=== PATIENT | female | born 1970 | race Caucasian/White ===

== ENCOUNTER 2016-12-01 13:05 | Inpatient (IN) | payer OTHER ==
[~2016-12-01] VITALS: Ht 167.6 cm; Wt 108.6 kg
[2016-12-01 13:27] LABS: BASOPHILS % (AUTO) 0.3 % (0.0-2.0); EOSINOPHILS % (AUTO) 2.5 % (1.0-6.0); HEMATOCRIT 36.3 % (36-46); HEMOGLOBIN 11.8 g/dL (12.0-16.0); LYMPHOCYTES # (AUTO) 1.9 K/uL (1.0-4.8); LYMPHOCYTES % (AUTO) 16.9 % (22.0-44.0); MEAN CORPUSCULAR HEMOGLOBIN 26.7 pg (26.0-34.0); MEAN CORPUSCULAR HGB CONC 32.4 G/dL (31.0-37.0); MEAN CORPUSCULAR VOLUME 82 fL (80-100); MONOCYTES # (AUTO) 0.6 K/uL (0.1-1.0); MONOCYTES % (AUTO) 5.4 % (2.0-9.0); NEUTROPHILS # (AUTO) 8.5 K/uL (1.8-7.7); NEUTROPHILS % (AUTO) 74.9 % (40.0-70.0); PLATELET COUNT (AUTO) 267 K/uL (150-450); RED BLOOD CELL COUNT(AUTO) 4.42 MIL/uL (4.00-5.20); RED CELL DISTRIBUTION WIDTH 17.9 % (11.5-14.5); WHITE BLOOD COUNT (AUTO) 11.4 K/uL (4.5-11.0)
[2016-12-01] MEDS ORDERED: OXYC10 PO (13:27)
[2016-12-01] MEDS ORDERED: SODIUM CHLORIDE 0.9% 1,000 ML IV ONE ×3 (13:30→19:00)
[2016-12-01 13:35] LABS: ANION GAP 7 mmol/L (8-16); CALCIUM, TOTAL 8.6 mg/dL (8.8-10.5); CARBON DIOXIDE 27 mmol/L (22-29); CHLORIDE 105 mmol/L (98-107); GLOMERULAR FILTR. RATE CALC 54 mL/min (>60); POTASSIUM 3.5 mmol/L (3.5-5.1); SODIUM SERUM 139 mmol/L (136-145); UREA NITROGEN, BLOOD 9 mg/dL (7-18)
[2016-12-01 13:49] LABS: SALICYLATE < 2.8 mg/dL (2.8-20.0)
[2016-12-01 13:54] LABS: APPEARANCE,URINE CLEAR (CLEAR); GLUCOSE, URINE (UA) NEGATIVE (NEGATIVE); KETONES,URINE NEGATIVE (NEGATIVE); LEUKOCYTE ESTERASE ,URINE NEGATIVE (NEGATIVE); OCCULT BLOOD,URINE NEGATIVE (NEGATIVE); PH,URINE 5.5 (5.0-8.0); PROTEIN,URINE NEGATIVE (NEGATIVE)
[2016-12-01 13:55] LABS: ADD UA MICROSCOPIC NO
[2016-12-01 13:57] LABS: RBC MORPHOLOGY COMMENT ABNORMAL RBC MORPH
[2016-12-01 14:08] LABS: ALANINE AMINOTRANSFERASE 38 U/L (12-78); ALBUMIN 3.2 g/dL (3.4-5.0); ASPARTATE AMINOTRANSFERASE 61 U/L (15-37); BILIRUBIN,TOTAL 0.4 mg/dL (0.1-1.0); CREATINE KINASE MB 13.6 ng/mL (0-5); TOTAL PROTEIN, SERUM 7.3 g/dL (6.4-8.2)
[2016-12-01 14:09] LABS: CREATINE KINASE, TOTAL 2806 U/L (26-192)
[2016-12-01 14:12] LABS: ACETAMINOPHEN < 2 mcg/mL (10-30)
[2016-12-01 17:35] LABS: ANION GAP 6 mmol/L (8-16); CALCIUM, TOTAL 7.8 mg/dL (8.8-10.5); CARBON DIOXIDE 27 mmol/L (22-29); CHLORIDE 107 mmol/L (98-107); CREATININE 0.88 mg/dL (0.60-1.30); GLOMERULAR FILTR. RATE CALC > 60 mL/min (>60); SODIUM SERUM 140 mmol/L (136-145); UREA NITROGEN, BLOOD 8 mg/dL (7-18)
[2016-12-01] MEDS ORDERED: LEVOFLOXACIN 750 MG/D5% WATER 150 ML IV ONE (17:45)
[2016-12-01 18:09] LABS: ALANINE AMINOTRANSFERASE 35 U/L (12-78); ALBUMIN 2.9 g/dL (3.4-5.0); ASPARTATE AMINOTRANSFERASE 75 U/L (15-37); BILIRUBIN,TOTAL 0.3 mg/dL (0.1-1.0); TOTAL PROTEIN, SERUM 6.3 g/dL (6.4-8.2)
[2016-12-01 18:10] LABS: CREATINE KINASE, TOTAL 3756 U/L (26-192)
[2016-12-01] MEDS ORDERED: 0.9% SODIUM CHLORIDE 10 ML SYRINGE IVP PRN (18:45)
[2016-12-01] MEDS ORDERED: ACETAMINOPHEN 325 MG TABLET PO PRN (18:45)
[2016-12-01 19:01] LABS: SALICYLATE < 2.8 mg/dL (2.8-20.0)
[2016-12-01 19:31] LABS: ACETAMINOPHEN < 2 mcg/mL (10-30)
[2016-12-01 22:35] VITALS: BP 120/70
[2016-12-01 23:35] VITALS: BP 117/61
[2016-12-02] MEDS ORDERED: ONDANSETRON HCL 4 MG/2 ML VIAL IVP PRN (01:15)
[2016-12-02] MEDS ORDERED: ACETAMINOPHEN 325 MG TABLET PO PRN (01:15)
[2016-12-02] MEDS ORDERED: 0.9% SODIUM CHLORIDE 10 ML SYRINGE IVP PRN (01:15)
[2016-12-02] MEDS: DOCUSATE SODIUM 100 MG CAPSULE PO SCH ×3 (01:15→20:31)
[2016-12-02] MEDS ORDERED: MAGNESIUM HYDROXIDE SUSPENSION 30 ML UDCUP PO PRN (01:15)
[2016-12-02 05:03] VITALS: BP 107/64
[2016-12-02] MEDS: SODIUM CHLORIDE 0.9% 1,000 ML IV SCH ×3 (05:12→21:15)
[2016-12-02 07:27] VITALS: BP 114/69
[2016-12-02] MEDS: PANTOPRAZOLE SODIUM 40 MG/VIAL IVP SCH (07:41)
[2016-12-02 10:59] VITALS: BP 110/62
[2016-12-02] MEDS ORDERED: INFLUENZA VIRUS VACCINE QVS 2016-17 (3YR+)/PF 60 MCG/0.5 ML SYRINGE IM ONE (13:45)
[2016-12-02 14:49] VITALS: BP 123/78
[2016-12-02 19:49] VITALS: BP 124/75
[2016-12-02] MEDS ORDERED: CefTRIAXone 1 GM/DEXTROSE 50 ML IV SCH (21:00)
[2016-12-02] MEDS ORDERED: LIDOCAINE HCL/PF 1% 2 ML VIAL IM SCH (22:00)
[2016-12-02] MEDS ORDERED: CefTRIAXone SODIUM 1 GM/VIAL IM SCH (22:00)
[2016-12-02 23:58] VITALS: BP 119/72
[2016-12-03 04:30] VITALS: BP 119/77
[2016-12-03] MEDS: SODIUM CHLORIDE 0.9% 1,000 ML IV SCH (06:39)
[2016-12-03 07:15] VITALS: BP 120/63
[2016-12-03] MEDS: DOCUSATE SODIUM 100 MG CAPSULE PO SCH (07:50)
[2016-12-03] MEDS: PANTOPRAZOLE SODIUM 40 MG/VIAL IVP SCH (07:50)
== END 2016-12-03 12:00 | disposition left against medical advice (07) | DRG 917 ==
LOC: EMS 13:07 → 5S 21:09
PROVIDERS: ADMIT Internal Medicine; ATTEND Internal Medicine
DX: T40.2X1A Poisoning by other opioids, accidental (unintentional), initial encounter (principal); G92 Toxic encephalopathy; E43 Unspecified severe protein-calorie malnutrition; J18.9 Pneumonia, unspecified organism; M62.82 Rhabdomyolysis; F11.20 Opioid dependence, uncomplicated; G89.29 Other chronic pain; M54.9 Dorsalgia, unspecified; E86.0 Dehydration; F17.210 Nicotine dependence, cigarettes, uncomplicated; Z68.38 Body mass index [BMI] 38.0-38.9, adult; Z28.21 Immunization not carried out because of patient refusal; Z79.899 Other long term (current) drug therapy; Z82.5 Family history of asthma and other chronic lower respiratory diseases; Z82.49 Family history of ischemic heart disease and other diseases of the circulatory system; Y93.89 Activity, other specified; Y92.018 Other place in single-family (private) house as the place of occurrence of the external cause; Y99.8 Other external cause status
CPT/HCPCS: 51702; 87040; 93005; 96361; 96365; 96366; 99285; G0480; G0481; J0696; J1956; J3490; J7030